=== PATIENT | male | born 1985 | race African-American/Black ===

== ENCOUNTER 2018-11-01 19:50 | Emergency (ER) | payer OTHER ==
[~2018-11-01] VITALS: Ht 170.2 cm; Wt 72.7 kg
[2018-11-01 20:34] LABS: HEMATOCRIT 43.1 % (39.0-50.0); HEMOGLOBIN 14.5 g/dl (14.0-18.0); IMMATURE GRANULOCYTES 0.2 % (0.0-5.0); MEAN CELL VOLUME 87.1 fL CALC (80.0-100.0); MEAN CORPUSCULAR HGB 29.3 pG CALC (26.0-32.0); MEAN CORPUSCULAR HGB CONC 33.6 g/L CALC (32.0-36.0); NEUT# 2.51 thou/uL (1.82-7.42); RED BLOOD COUNT 4.95 mill/uL (4.70-6.10); RED CELL DISTRI WIDTH 13.2 % (11.5-15.5)
[2018-11-01 20:47] LABS: ACT PARTIAL THROMBO TIME 25.7 SECONDS (20.0-32.5); ALBUMIN 5.3 g/dL (3.2-5.0); ALKALINE PHOSPHATASE 61 u/l (38-126); ANION GAP 16 (6-22 (CALC)); BILIRUBIN, TOTAL 1.3 mg/dL (0.0-1.4); BUN 9 mg/dL (9-20); BUN/CREATININE RATIO 8 (12-20 (CALC)); CARBON DIOXIDE 26 mmol/l (22-30); CHLORIDE 102 mmol/l (95-108); CREATININE 1.2 mg/dL (0.7-1.3); GFR > 60 ML/MIN (>=60 (CALC)); GFR FOR AFR.AMER. > 60 ML/MIN (>=60 (CALC)); INTERNATIONAL NORMALIZED RATIO 1.1 RATIO (0.7-1.3); POTASSIUM 3.8 mmol/l (3.5-5.1); PROTHROMBIN TIME 11.2 SECONDS (9.0-12.5); SGOT/AST 22 u/l (17-59); SODIUM 140 mmol/l (137-146); TOTAL PROTEIN 8.7 g/dL (6.3-8.2)
[2018-11-01] MEDS ORDERED: BACTRIM DS1 TAB PO (22:54)
[2018-11-02 00:05] VITALS: BP 117/75
== END 2018-11-02 00:12 | DRG 605 ==
LOC: ED 19:50
PROVIDERS: Family Medicine
PROC: 0HQ6XZZ Repair Back Skin, External Approach (ICD-10-PCS; principal; 2018-11-01)
DX: S21.212A Laceration without foreign body of left back wall of thorax without penetration into thoracic cavity, initial encounter (principal); S21.211A Laceration without foreign body of right back wall of thorax without penetration into thoracic cavity, initial encounter; W26.9XXA Contact with unspecified sharp object(s), initial encounter; Y92.149 Unspecified place in prison as the place of occurrence of the external cause
CPT/HCPCS: Q9967